=== PATIENT | female | born 1995 | race Caucasian/White ===

== ENCOUNTER 2017-08-21 16:53 | Emergency (ER) | payer MEDICAID ==
[2017-08-21 17:07] VITALS: BP 129/73
[2017-08-21] MEDS ORDERED: Ketorolac 60 MG/2 ML SDV IM ONE (17:36)
[2017-08-21] MEDS ORDERED: diphenhydrAMINE 25 MG Cap PO ONE (17:36)
[2017-08-21] MEDS ORDERED: Ondansetron 4 MG Tab.DIS PO ONE (17:36)
--- NOTE | 2017-08-21 17:39 | EDM.PDOC ---
ED HPI GENERAL MEDICAL PROBLEM - General Chief Complaint: Neurological Problem Stated Complaint: migraine Time Seen by Provider: 08/21/17 17:32 Source of Information: Reports: Patient, RN Notes Reviewed History Limitations: Reports: No Limitations - History of Present Illness INITIAL COMMENTS - FREE TEXT/NARRATIVE: 21-year-old female presents emergency department day complaint of headache she does have a known history of migraines she states this is typical for she does have photophobia and nausea as well this particular headache started at 3:00 this afternoon she has tried ibuprofen without much relief - Related Data Allergies Allergy/AdvReac Type Severity Reaction Status Date / Time Ct scan dye Allergy Hives Uncoded 06/12/16 16:06 Home Meds: Home Meds NK [No Known Home Meds] 06/12/16 [History] Past Medical History HEENT History: Reports: Allergic Rhinitis Respiratory History: Reports: PE Gastrointestinal History: Reports: GERD Musculoskeletal History: Reports: Arthritis, Fracture Other Musculoskeletal History: wrist FX. hips-arthritis Neurological History: Reports: Migraines Psychiatric History: Reports: Depression Endocrine/Metabolic History: Reports: Obesity/BMI 30+ Dermatologic History: Reports: Other (See Below) Other Dermatologic History: rash - Past Surgical History Head Surgeries/Procedures: Reports: None GI Surgical History: Reports: Hernia, Abdominal Social & Family History - Tobacco Use Smoking Status *Q: Current Every Day Smoker Years of Tobacco use: 4 Packs/Tins Daily: 1 - Recreational Drug Use Recreational Drug Use: No ED ROS GENERAL - Review of Systems Review Of Systems: See Below Constitutional: Reports: No Symptoms HEENT: Reports: Eye Pain Respiratory: Reports: No Symptoms Cardiovascular: Reports: No Symptoms GI/Abdominal: Reports: Nausea Neurological: Reports: Headache - Physical Exam Exam: See Below Exam Limited By: No Limitations General Appearance: Alert, WD/WN, No Apparent Distress Eye Exam: Bilateral Eye: Normal Fundi, Normal Inspection Respiratory/Chest: No Respiratory Distress Course - Vital Signs Last Recorded V/S: Last Vital Signs Temp 98.2 F 08/21/17 17:13 Pulse 87 08/21/17 17:13 Resp 18 08/21/17 17:13 BP 129/73 08/21/17 17:13 Pulse Ox 97 08/21/17 17:13 - Orders/Labs/Meds Meds: Medications Discontinued Medications Generic Name Dose Route Start Last Admin Trade Name Freq PRN Reason Stop Dose Admin Diphenhydramine HCl 25 mg 08/21/17 17:36 08/21/17 17:40 Benadryl PO 08/21/17 17:37 25 mg ONETIME ONE Administration Ketorolac Tromethamine 60 mg 08/21/17 17:36 08/21/17 17:42 Toradol IM 08/21/17 17:37 60 mg ONETIME ONE Administration Ondansetron HCl 4 mg 08/21/17 17:36 08/21/17 17:41 Zofran Odt PO 08/21/17 17:37 4 mg ONETIME ONE Administration Departure - Departure Time of Disposition: 17:58 Disposition: Home, Self-Care 01 Condition: Good Clinical Impression: Migraine Qualifiers: Migraine type: without aura Status migrainosus presence: without status migrainosus Intractability: not intractable Qualified Code(s): G43.009 - Migraine without aura, not intractable, without status migrainosus - Discharge Information Referrals: Ino Billings, BRIAN [Primary Care Provider] - Forms: ED Department Discharge Additional Instructions: Follow-up with primary care as needed, call return to the emergency department worsening of symptoms - Assessment/Plan Plan: Assessment Acuity = acute Site and laterality = migraine type headache Etiology = unclear etiology Manifestations = none Location of injury = Home Lab values = none Plan She had good relief combination Toradol, Benadryl and Zofran, she'll follow up with her primary care as needed Patient was in agreement with the plan all questions were answered, they were instructed to return to the emergency department or call for worsening symptoms. This note was dictated using [email or web address] voice recognition software please call with any questions.
== END 2017-08-21 18:06 | disposition home or self-care (01) ==
LOC: JP.ED 16:53
DX: G43.009 Migraine without aura, not intractable, without status migrainosus (principal); F17.210 Nicotine dependence, cigarettes, uncomplicated; E66.9 Obesity, unspecified
CPT/HCPCS: 96372; 99283; A9270; J1885

== ENCOUNTER 2019-09-09 20:42 | Emergency (ER) | payer MEDICAID ==
[2019-09-09 20:56] VITALS: BP 140/73; PULSE 92
--- NOTE | 2019-09-09 21:06 | EDM.PDOC ---
ED HPI GENERAL MEDICAL PROBLEM - General Chief Complaint: ADMINISTRATIVE TECH Problem Stated Complaint: WALK-IN MEDICAL Time Seen by Provider: 09/09/19 20:45 Source of Information: Reports: Patient History Limitations: Reports: No Limitations - History of Present Illness INITIAL COMMENTS - FREE TEXT/NARRATIVE: Eva is a 23 year old female, presents to the ED today with concerns of vaginal bleeding the last few days, sometimes going through a tampon an hour for up to 6 hours at a time. Patient c/o mild lightheadedness, passed some tissue which she brought in in a zip lock bag. Patient c/o mild pelvic cramping relieved with Ibuprofen. Patient had IUD placed in July. Patient denies any urinary symptoms/fever/chills. Onset: Gradual abd Pain Score (Numeric/FACES): 5 - Related Data Allergies Allergy/AdvReac Type Severity Reaction Status Date / Time Ct scan dye Allergy Hives Uncoded 09/09/19 21:06 Home Meds: Home Meds NK [No Known Home Meds] 06/12/16 [History] Past Medical History HEENT History: Reports: Allergic Rhinitis, Impaired Vision Respiratory History: Reports: PE Gastrointestinal History: Reports: GERD Musculoskeletal History: Reports: Arthritis, Fracture Other Musculoskeletal History: wrist FX. hips-arthritis Neurological History: Reports: Concussion, Migraines Psychiatric History: Reports: Anxiety, Depression, Panic Attack, PTSD Endocrine/Metabolic History: Reports: Obesity/BMI 30+ Dermatologic History: Reports: Other (See Below) Other Dermatologic History: rash - Past Surgical History Head Surgeries/Procedures: Reports: None GI Surgical History: Reports: Hernia, Abdominal Endocrine Surgical History: Reports: None Neurological Surgical History: Reports: None Musculoskeletal Surgical History: Reports: None Dermatological Surgical History: Reports: None Social & Family History - Caffeine Use Caffeine Use: Reports: Coffee, Energy Drinks, Soda, Tea ED ROS GENERAL - Review of Systems Review Of Systems: ROS reveals no pertinent complaints other than HPI. ED EXAM, GENERAL - Physical Exam Exam: See Below Exam Limited By: No Limitations General Appearance: Alert, WD/WN, No Apparent Distress Ears: Normal External Exam Head: Atraumatic Neck: Normal Inspection, Supple, Non-Tender Respiratory/Chest: No Respiratory Distress, Lungs Clear Cardiovascular: Regular Rate, Rhythm GI/Abdominal: Normal Bowel Sounds, Soft, Non-Tender (Female) Exam: Normal External Exam, Normal Speculum Exam, Vaginal Bleeding ( mild, small amount in vault, no CMT, no clots, no brisk bleeding, no other discharge appreciated, RN at bedside during exam) Back Exam: Normal Inspection Extremities: Normal Inspection, Normal Range of Motion Neurological: Alert, Oriented, CN II-XII Intact Psychiatric: Normal Affect, Normal Mood Skin Exam: Warm, Dry, Intact Lymphatic: No Adenopathy Course - Vital Signs Last Recorded V/S: Last Vital Signs Temp 36.5 C 09/09/19 21:07 Pulse 92 09/09/19 21:07 Resp 16 09/09/19 21:07 BP 140/73 09/09/19 21:07 Pulse Ox 96 09/09/19 21:07 Eva is a 23 year old female, presents to the ED today with concerns of vaginal bleeding. Please refer to HPI and focused exam. Patient has small amount of bleeding present on pelvic exam which was done with RN at bedside after obtaining patient verbal consent. Patient has no other abnormalities on exam. CBC obtained which returns with a very stable HGB of 14.8. Patient is hemodynamically stable here, afebrile. Urinalysis with 5-10 WBC's and small leukocyte esterase but no urinary symptoms, will await UC, Urine negative. Patient reassured and instructed to contact primary care clinic tomorrow to schedule follow up appt later this week. Reasons to return to the ED discussed, patient agreeable to plan of care and discharged in stable condition with her . - Orders/Labs/Meds Orders: Active Orders 24 hr Category Date Time Status CULTURE URINE [RM] Stat Lab 09/09/19 21:15 Labs: Laboratory Tests 09/09/19 09/09/19 09/09/19 Range/Units 20:46 20:59 21:12 WBC 8.6 (4.5-11.0) K/uL RBC 4.85 (3.30-5.50) M/uL Hgb 14.8 (12.0-15.0) g/dL Hct 45.0 (36.0-48.0) % MCV 93 (80-98) fL MCH 31 (27-31) pg MCHC 33 (32-36) % Plt Count 285 (150-400) K/uL Neut % (Auto) 70 H (36-66) % Lymph % (Auto) 23 L (24-44) % [place] % (Auto) 6 (2-6) % Eos % (Auto) 2 (2-4) % Baso % (Auto) 0 (0-1) % Sodium 140 (140-148) mmol/L Potassium 4.0 (3.6-5.2) mmol/L Chloride 102 (100-108) mmol/L Carbon Dioxide 28 (21-32) mmol/L Anion Gap 10.4 (5.0-14.0) mmol/L BUN 10 (7-18) mg/dL Creatinine 0.8 (0.6-1.0) mg/dL Est Cr Clr Drug Dosing 102.39 mL/min Estimated GFR (MDRD) > 60 (>60) Glucose 96 (74-106) mg/dL Calcium 9.3 (8.5-10.1) mg/dL Urine Color Yellow (YELLOW) Urine Appearance Slightly cloudy A (CLEAR) Urine pH 7.5 (5.0-8.0) Ur Specific [place] 1.025 (1.008-1.030) Urine Protein Negative (NEGATIVE) mg/dL Urine Glucose (UA) Negative (NEGATIVE) mg/dL Urine Ketones Negative (NEGATIVE) mg/dL Urine Occult Blood Moderate H (NEGATIVE) Urine Nitrite Negative (NEGATIVE) Urine Bilirubin Negative (NEGATIVE) Urine Urobilinogen 0.2 (0.2-1.0) EU/dL Ur Leukocyte Esterase Trace H (NEGATIVE) Urine RBC 5-10 H (0-5) Urine WBC 5-10 H (0-5) Ur Epithelial Cells Moderate Amorphous Sediment Not seen Urine Bacteria Few Urine Mucus Few Urine HCG, Qual 09/09/19 Range/Units 21:12 WBC (4.5-11.0) K/uL RBC (3.30-5.50) M/uL Hgb (12.0-15.0) g/dL Hct (36.0-48.0) % MCV (80-98) fL MCH (27-31) pg MCHC (32-36) % Plt Count (150-400) K/uL Neut % (Auto) (36-66) % Lymph % (Auto) (24-44) % [place] % (Auto) (2-6) % Eos % (Auto) (2-4) % Baso % (Auto) (0-1) % Sodium (140-148) mmol/L Potassium (3.6-5.2) mmol/L Chloride (100-108) mmol/L Carbon Dioxide (21-32) mmol/L Anion Gap (5.0-14.0) mmol/L BUN (7-18) mg/dL Creatinine (0.6-1.0) mg/dL Est Cr Clr Drug Dosing mL/min Estimated GFR (MDRD) (>60) Glucose (74-106) mg/dL Calcium (8.5-10.1) mg/dL Urine Color (YELLOW) Urine Appearance (CLEAR) Urine pH (5.0-8.0) Ur Specific [place] (1.008-1.030) Urine Protein (NEGATIVE) mg/dL Urine Glucose (UA) (NEGATIVE) mg/dL Urine Ketones (NEGATIVE) mg/dL Urine Occult Blood (NEGATIVE) Urine Nitrite (NEGATIVE) Urine Bilirubin (NEGATIVE) Urine Urobilinogen (0.2-1.0) EU/dL Ur Leukocyte Esterase (NEGATIVE) Urine RBC (0-5) Urine WBC (0-5) Ur Epithelial Cells Amorphous Sediment Urine Bacteria Urine Mucus Urine HCG, Qual Negative Departure - Departure Time of Disposition: 21:45 Disposition: Home, Self-Care 01 Condition: Good Clinical Impression: Vaginal bleeding - Discharge Information Instructions: Abnormal Uterine Bleeding, Vmlc-os-Ates Referrals: PCP,None [Primary Care Provider] - Forms: ED Department Discharge Additional Instructions: Eva, Your blood work is very reassuring. Your HGB is very stable. This type of bleeding can be very normal with recent IUD placement. Your pelvic exam is unremarkable. Please contact your primary care clinic tomorrow to schedule follow up appt by the end of this week. - My Orders Last 24 Hours: My Active Orders 09/09/19 21:15 CULTURE URINE [RM] Stat - Assessment/Plan Last 24 Hours: My Active Orders 09/09/19 21:15 CULTURE URINE [RM] Stat
== END 2019-09-09 21:43 | disposition home or self-care (01) ==
LOC: JP.ED 20:42
DX: N93.9 Abnormal uterine and vaginal bleeding, unspecified (principal); E66.9 Obesity, unspecified; Z91.041 Radiographic dye allergy status; Z68.41 Body mass index [BMI] 40.0-44.9, adult
CPT/HCPCS: 36415; 80048; 81001; 81025; 85025; 87086; 99284

== ENCOUNTER 2019-10-28 19:08 | Emergency (ER) | payer MEDICAID ==
[2019-10-28 19:37] VITALS: BP 126/95; PULSE 84
[2019-10-28] MEDS ORDERED: Lactated Ringers 1,000 ML IV ONE (19:47)
[2019-10-28] MEDS ORDERED: Ondansetron 4 MG/2 ML SDV IVPUSH ONE (19:47)
[2019-10-28] MEDS ORDERED: HYDROmorphone 0.5 MG/0.5 ML Syringe IVPUSH ONE (19:47)
--- NOTE | 2019-10-28 19:53 | EDM.PDOC ---
ED HPI GENERAL MEDICAL PROBLEM - General Chief Complaint: Gastrointestinal Problem Stated Complaint: MEDICAL Time Seen by Provider: 10/28/19 19:30 Source of Information: Reports: Patient History Limitations: Reports: No Limitations - History of Present Illness INITIAL COMMENTS - FREE TEXT/NARRATIVE: 23-year-old history morbid obesity presents to concerns of right upper quadrant pain. She reports the pain started insidiously this morning. It is primarily in the right upper quadrant. Is an ache. Is currently /10. No significant radiation. No fevers. She is unable to tolerate anything by mouth today. She initially had some dry heaves, mild emesis, as well as soft stools but these have resolved. She also endorses a headache. In childhood she had an umbilical hernia repair, otherwise no abdominal surgeries. Right Upper Abdomen Pain Score (Numeric/FACES): 7 - Related Data Allergies Allergy/AdvReac Type Severity Reaction Status Date / Time Ct scan dye Allergy Mild Hives Uncoded 10/28/19 19:30 Home Meds: Home Meds NK [No Known Home Meds] 06/12/16 [History] Past Medical History HEENT History: Reports: Allergic Rhinitis, Impaired Vision Respiratory History: Reports: PE Gastrointestinal History: Reports: GERD CLINICAL MEDICAL TRANSCRIPTIONIST History: Reports: Therapeutic Musculoskeletal History: Reports: Arthritis, Fracture Other Musculoskeletal History: wrist FX. hips-arthritis Neurological History: Reports: Concussion, Migraines Psychiatric History: Reports: Anxiety, Depression, Panic Attack, PTSD Endocrine/Metabolic History: Reports: Obesity/BMI 30+ Dermatologic History: Reports: Other (See Below) Other Dermatologic History: rash - Past Surgical History Head Surgeries/Procedures: Reports: None GI Surgical History: Reports: Hernia, Abdominal Female Surgical History: Reports: Other (See Below) Other Female Surgeries/Procedures: IUD placed Jul 24 2019 Endocrine Surgical History: Reports: None Neurological Surgical History: Reports: None Musculoskeletal Surgical History: Reports: None Dermatological Surgical History: Reports: None Social & Family History - Family History Family Medical History: Noncontributory - Tobacco Use Smoking Status *Q: Current Every Day Smoker Years of Tobacco use: 10 Packs/Tins Daily: 1 - Caffeine Use Caffeine Use: Reports: Energy Drinks, Soda, Tea Caffeine Use Comment: daily soda; weekly tea and energy drinks - Recreational Drug Use Recreational Drug Use: No ED ROS GENERAL - Review of Systems Review Of Systems: See Below Constitutional: Reports: No Symptoms HEENT: Reports: No Symptoms Respiratory: Reports: No Symptoms Cardiovascular: Reports: No Symptoms Endocrine: Reports: No Symptoms GI/Abdominal: Reports: Abdominal Pain, Diarrhea, Nausea : Reports: No Symptoms Musculoskeletal: Reports: No Symptoms Skin: Reports: No Symptoms Neurological: Reports: No Symptoms Psychiatric: Reports: No Symptoms Hematologic/Lymphatic: Reports: No Symptoms Immunologic: Reports: No Symptoms ED EXAM, GI/ABD - Physical Exam Exam: See Below Exam Limited By: No Limitations General Appearance: Alert, No Apparent Distress Ears: Normal External Exam Nose: Normal Inspection Throat/Mouth: Normal Inspection Head: Atraumatic, Normocephalic Neck: Normal Inspection Respiratory/Chest: Lungs Clear Cardiovascular: Regular Rate, Rhythm GI/Abdominal Exam: Soft, Tender (RUQ TTP, + [place]) Back Exam: Normal Inspection Extremities: Normal Inspection Neurological: Alert, Oriented Psychiatric: Normal Affect, Normal Mood Skin Exam: Warm, Dry Course - Vital Signs Last Recorded V/S: Last Vital Signs Temp 36.6 C 10/28/19 19:31 Pulse 84 10/28/19 19:31 Resp 14 10/28/19 19:31 BP 126/95 H 10/28/19 19:31 Pulse Ox 99 10/28/19 19:31 - Orders/Labs/Meds Labs: Laboratory Tests 10/28/19 10/28/19 10/28/19 Range/Units 20:06 20:06 20:20 WBC 6.5 (4.5-11.0) K/uL RBC 4.96 (3.30-5.50) M/uL Hgb 15.0 (12.0-15.0) g/dL Hct 45.8 (36.0-48.0) % MCV 92 (80-98) fL MCH 30 (27-31) pg MCHC 33 (32-36) % Plt Count 247 (150-400) K/uL Sodium 139 L (140-148) mmol/L Potassium 3.6 (3.6-5.2) mmol/L Chloride 102 (100-108) mmol/L Carbon Dioxide 27 (21-32) mmol/L Anion Gap 13.6 (5.0-14.0) mmol/L BUN 9 (7-18) mg/dL Creatinine 0.7 (0.6-1.0) mg/dL Est Cr Clr Drug Dosing 117.01 mL/min Estimated GFR (MDRD) > 60 (>60) Glucose 91 (74-106) mg/dL Calcium 9.1 (8.5-10.1) mg/dL Total Bilirubin 0.7 (0.2-1.0) mg/dL AST 49 H (15-37) U/L ALT 61 (12-78) U/L Alkaline Phosphatase 60 (46-116) U/L Total Protein 8.3 H (6.4-8.2) g/dL Albumin 4.2 (3.4-5.0) g/dL Globulin 4.1 H (2.3-3.5) g/dL Albumin/Globulin Ratio 1.0 L (1.2-2.2) Lipase 93 (73-393) U/L Urine Color Yellow (YELLOW) Urine Appearance Clear (CLEAR) Urine pH 6.0 (5.0-8.0) Ur Specific [place] 1.010 (1.008-1.030) Urine Protein Negative (NEGATIVE) mg/dL Urine Glucose (UA) Negative (NEGATIVE) mg/dL Urine Ketones Negative (NEGATIVE) mg/dL Urine Occult Blood Trace-intact H (NEGATIVE) Urine Nitrite Negative (NEGATIVE) Urine Bilirubin Negative (NEGATIVE) Urine Urobilinogen 0.2 (0.2-1.0) EU/dL Ur Leukocyte Esterase Negative (NEGATIVE) Urine RBC 0-5 (0-5) Urine WBC Not seen (0-5) Ur Epithelial Cells Rare Amorphous Sediment Not seen Urine Bacteria Few Urine Mucus Not seen Urine HCG, Qual 10/28/19 Range/Units 20:20 WBC (4.5-11.0) K/uL RBC (3.30-5.50) M/uL Hgb (12.0-15.0) g/dL Hct (36.0-48.0) % MCV (80-98) fL MCH (27-31) pg MCHC (32-36) % Plt Count (150-400) K/uL Sodium (140-148) mmol/L Potassium (3.6-5.2) mmol/L Chloride (100-108) mmol/L Carbon Dioxide (21-32) mmol/L Anion Gap (5.0-14.0) mmol/L BUN (7-18) mg/dL Creatinine (0.6-1.0) mg/dL Est Cr Clr Drug Dosing mL/min Estimated GFR (MDRD) (>60) Glucose (74-106) mg/dL Calcium (8.5-10.1) mg/dL Total Bilirubin (0.2-1.0) mg/dL AST (15-37) U/L ALT (12-78) U/L Alkaline Phosphatase (46-116) U/L Total Protein (6.4-8.2) g/dL Albumin (3.4-5.0) g/dL Globulin (2.3-3.5) g/dL Albumin/Globulin Ratio (1.2-2.2) Lipase (73-393) U/L Urine Color (YELLOW) Urine Appearance (CLEAR) Urine pH (5.0-8.0) Ur Specific [place] (1.008-1.030) Urine Protein (NEGATIVE) mg/dL Urine Glucose (UA) (NEGATIVE) mg/dL Urine Ketones (NEGATIVE) mg/dL Urine Occult Blood (NEGATIVE) Urine Nitrite (NEGATIVE) Urine Bilirubin (NEGATIVE) Urine Urobilinogen (0.2-1.0) EU/dL Ur Leukocyte Esterase (NEGATIVE) Urine RBC (0-5) Urine WBC (0-5) Ur Epithelial Cells Amorphous Sediment Urine Bacteria Urine Mucus Urine HCG, Qual Negative Meds: Medications Discontinued Medications Generic Name Dose Route Start Last Admin Trade Name Freq PRN Reason Stop Dose Admin Hydromorphone HCl 0.5 mg 10/28/19 19:47 10/28/19 20:10 Dilaudid IVPUSH 10/28/19 19:48 0.5 mg ONETIME ONE Administration Lactated Ringer's 1,000 mls @ 1,000 mls/hr 10/28/19 19:47 10/28/19 20:10 Ringers, Lactated IV 10/28/19 20:46 1,000 mls/hr BOLUS ONE Administration Ondansetron HCl 4 mg 10/28/19 19:47 10/28/19 20:07 Zofran IVPUSH 10/28/19 19:48 4 mg ONETIME ONE Administration - Re-Assessments/Exams Free Text/Narrative Re-Assessment/Exam: 23-year-old presents to concerns of right upper quadrant pain. On exam has normal vitals, relatively well-appearing, however is quite tender in the right upper quadrant with positive Brar sign. Most concerned for gallbladder pathology, we'll check abdominal labs, ultrasound , and urine. Providing IV pain control and antiemetics as well as IV fluid hydration. 10/28/19 19:52 Free Text/Narrative Re-Assessment/Exam: Labs, imaging unremarkable. No GB stones Patient now asymptomatic Does endorse mild R CVA tenderness. Had no hydro on US. Mild hematuria but currently with vaginal bleeding (ongoing for month,attributed to IUD). Suspicion for renal stone is low. Recommend to patient we defer CT imaging at this time and she is comfortable with this. She will return for recurrent/ worsening symptoms. Discharged 10/28/19 21:17 Departure - Departure Time of Disposition: 21:20 Disposition: Home, Self-Care 01 Clinical Impression: Abdominal pain Qualifiers: Abdominal location: right upper quadrant Qualified Code(s): R10.11 - Right upper quadrant pain - Discharge Information Referrals: PCP,None [Primary Care Provider] - Forms: ED Department Discharge Additional Instructions: We did not find a cause for your symptoms, but suspect they are due to viral illness. Please eat a bland diet and drink clear fluids. As discussed, return to the ER for worsening symptoms.
--- NOTE | 2019-10-28 21:03 | CRLUS ---
INDICATION: Right upper quadrant abdomen pain TECHNIQUE: Ultrasound abdomen limited. Sonographic images of the right upper quadrant were obtained using maier-scale and color Doppler images. COMPARISON: None FINDINGS: Liver: Diffusely echogenic parenchyma consistent with fatty infiltration. No masses. No intrahepatic biliary dilatation. Gallbladder: No stones or sludge. Normal wall thickness. No pericholecystic fluid. Common bile duct: 3 mm. Pancreas: Normal. Right kidney: Normal in size. Normal echotexture and cortex. No suspicious masses, stones, or hydronephrosis. Vasculature: Proximal abdominal aorta and IVC are normal. IMPRESSION: Unremarkable right upper quadrant ultrasound. No sign of gallbladder disease or other explanation for right upper quadrant pain. Dictated by Britton Bolaños MD @ Oct 28 2019 9:01PM Signed by Dr. Britton Bolaños @ Oct 28 2019 9:03PM
== END 2019-10-28 21:35 | disposition home or self-care (01) ==
LOC: JP.ED 19:08
DX: R10.11 Right upper quadrant pain (principal); E66.9 Obesity, unspecified; F17.210 Nicotine dependence, cigarettes, uncomplicated; Z91.041 Radiographic dye allergy status; Z68.41 Body mass index [BMI] 40.0-44.9, adult
CPT/HCPCS: 36415; 76705; 80053; 81001; 81025; 83690; 85027; 96361; 96374; 96375; 99284; J1170; J2405; J7120

== ENCOUNTER 2020-05-15 21:38 | Emergency (ER) | payer MEDICAID | END 2020-05-15 21:59 | disposition left against medical advice (07) | LOC: JP.ED 21:38 | DX: Z53.21 Procedure and treatment not carried out due to patient leaving prior to being seen by health care provider (principal) ==

== ENCOUNTER 2020-08-27 07:52 | Day surgery (SDC) | payer MEDICAID ==
[2020-08-27] MEDS ORDERED: Nozin Nasal Sanitizer NASBOTH ONE ×2 (08:30→13:30)
[2020-08-27] MEDS ORDERED: Glycopyrrolate 0.2 MG/ML 5 ML MDV ONE (08:46)
[2020-08-27] MEDS ORDERED: Propofol 200 MG/20 ML SDV ONE (08:46)
[2020-08-27] MEDS ORDERED: Neostigmine Methylsulfate 1 MG/ML 5 ML Syringe ONE (08:46)
[2020-08-27] MEDS ORDERED: Rocuronium 50 MG/5 ML Vial ONE (08:46)
[2020-08-27] MEDS ORDERED: fentaNYL 250 MCG/5 ML SDV ONE (08:46)
[2020-08-27] MEDS ORDERED: Dexamethasone 4 MG/ML SDV ONE (08:46)
[2020-08-27] MEDS ORDERED: Succinylcholine 200 MG/10 ML MDV ONE (08:46)
[2020-08-27] MEDS ORDERED: Ondansetron 4 MG/2 ML SDV ONE (08:46)
[2020-08-27] MEDS ORDERED: Lactated Ringers 1,000 ML IV SCH (09:15)
[2020-08-27] MEDS ORDERED: ceFAZolin 1 GM in Premix Bag 1 BAG IV ONE (10:00)
[2020-08-27] MEDS ORDERED: ceFAZolin 1 GM Vial IM ONE (10:00)
[2020-08-27] MEDS ORDERED: Bupivacaine 0.5% 30 ML SDV ONE (10:03)
[2020-08-27] MEDS ORDERED: Midazolam 1 MG/ML 2 ML SDV ONE (12:05)
[2020-08-27] MEDS ORDERED: Ketorolac 60 MG/2 ML SDV ONE (12:47)
[2020-08-27] MEDS ORDERED: fentaNYL 100 MCG/2 ML SDV ONE (12:57)
[2020-08-27] MEDS ORDERED: Acetaminophen/HYDROcodone 325-5 MG Tab PO ONE (13:31)
[2020-08-27 14:25] VITALS: BP 122/71; PULSE 66
--- NOTE | 2020-09-01 19:43 | OR ---
DATE OF PROCEDURE: 08/27/2020 SURGEON: Mati Henson MD PREOPERATIVE DIAGNOSIS: Chondromalacia of patella, right knee. POSTOPERATIVE DIAGNOSES: 1. Chondromalacia of patella, right knee. 2. Hypertrophic synovium with impingement. PROCEDURE: Arthroscopy, right knee, with chondroplasty of patella and limited synovectomy. ANESTHESIA: General. INDICATIONS: Eva is a 24-year-old female with a history of chronic anterior knee pain on the right knee. She has been through extensive physical therapy, attempted bracing and taping with no significant improvement. She has anterior pain with grinding and intermittent giving way. Examination and imaging are consistent with chondromalacia of the patellofemoral joint. She has failed conservative treatment. She now presents for arthroscopic evaluation and chondroplasty. Risks, benefits, potential complications of the procedure were discussed. DESCRIPTION OF PROCEDURE: After adequate anesthesia was obtained, the patient was placed supine with a tourniquet about the right upper thigh. Right leg was prepped and draped in a sterile fashion. Leg was exsanguinated and tourniquet inflated to 300 mmHg pressure. Standard inferior, medial, and lateral portals were established. The scope was introduced and patellofemoral joint was inspected. This revealed an area of grade 2 and early grade 3 changes just off the dome of the patella more medially. Further probing revealed a small bubble over the dome of the patella with significant softening of the articular cartilage throughout the dome without defect, grade I . Over the superior medial aspect of the patella, a veil of synovium was present which hung down into the patellofemoral joint and a ridge of hypertrophic synovium was present along the medial parapatellar region. A shaver was introduced and the synovium was debrided. Chondroplasty was then performed on the patella removing all loose articular fragments and bevelling the edges. This was done in the area of the grade 2 and 3 changes without removing any of the grade 1 softening as this would have resulted in removal of an extensive portion of the dome. Moving into the medial compartment, medial meniscus and articular cartilage were intact. ACL and PCL were intact. Lateral compartment showed intact articular cartilage and meniscus. Sweeping up into the lateral gutter, no loose bodies or other abnormalities were identified. The knee was taken through range of motion and the patella tracking was observed. Did not show excessive malalignment and no evidence of catching on any of the edges of the chondroplasty. The scope was withdrawn, knee was drained. Port sites were closed in a standard fashion, infiltrated with Marcaine, and a sterile dressing was applied. The patient tolerated the procedure very well. There were no complications, taken from the operating room in stable condition. Mati Henson MD /[id number] MTDD
== END 2020-08-27 14:29 | disposition home or self-care (01) ==
LOC: JP.SDS 07:52
PROVIDERS: ATTEND Specialist
DX: M22.41 Chondromalacia patellae, right knee (principal); M25.861 Other specified joint disorders, right knee; M67.261 Synovial hypertrophy, not elsewhere classified, right lower leg; G89.29 Other chronic pain; F17.200 Nicotine dependence, unspecified, uncomplicated; F41.9 Anxiety disorder, unspecified; E66.09 Other obesity due to excess calories; Z68.41 Body mass index [BMI] 40.0-44.9, adult
CPT/HCPCS: 29875; 36415; 80048; 81025; 85027; A9270; J0330; J0690; J1100; J1885; J2250; J2405; J2704; J3010; J3490; J7120; J2710

== ENCOUNTER 2022-05-07 06:11 | Emergency (ER) | payer MEDICAID ==
[2022-05-07 06:31] VITALS: BP 119/69; PULSE 72
== END 2022-05-07 07:00 | disposition home or self-care (01) ==
LOC: JP.ED 06:11
DX: U07.1 COVID-19 (principal); E66.9 Obesity, unspecified; Z68.38 Body mass index [BMI] 38.0-38.9, adult; Z88.8 Allergy status to other drugs, medicaments and biological substances
CPT/HCPCS: 99284; U0002

== ENCOUNTER 2022-05-12 09:21 | Emergency (ER) | payer MEDICAID ==
[2022-05-12 09:42] VITALS: BP 133/88; PULSE 98
[2022-05-12] MEDS ORDERED: Ketorolac 30 MG/ML SDV IM ONE (11:00)
[2022-05-12] MEDS ORDERED: LORazepam 0.5 MG Tab PO ONE (11:01)
[2022-05-12 11:08] LABS: ESTIMATED GFR 104 mL/min (>60)
== END 2022-05-12 13:20 | disposition home or self-care (01) ==
LOC: JP.ED 09:21
DX: R51.9 Headache, unspecified (principal); U09.9 Post COVID-19 condition, unspecified; E66.9 Obesity, unspecified; Z91.041 Radiographic dye allergy status; Z88.8 Allergy status to other drugs, medicaments and biological substances; Z68.37 Body mass index [BMI] 37.0-37.9, adult
CPT/HCPCS: 36415; 70450; 70450-26; 71046; 71046-26; 80053; 85025; 85379; 86140; 99282; 99284-25

== ENCOUNTER 2022-09-22 11:07 | Emergency (ER) | payer MEDICAID ==
[2022-09-22 11:20] VITALS: BP 114/67; PULSE 81
[2022-09-22] MEDS ORDERED: Ketorolac 30 MG/ML SDV IM ONE (11:31)
== END 2022-09-22 12:51 | disposition home or self-care (01) ==
LOC: JP.ED 11:07
DX: M79.651 Pain in right thigh (principal); M79.652 Pain in left thigh; F17.210 Nicotine dependence, cigarettes, uncomplicated; E66.9 Obesity, unspecified; Z68.37 Body mass index [BMI] 37.0-37.9, adult; Z91.041 Radiographic dye allergy status; Z88.8 Allergy status to other drugs, medicaments and biological substances; Z79.899 Other long term (current) drug therapy
CPT/HCPCS: 36415; 80048; 82550; 85025; 85651; 86140; 96372; 99283; J1885

== ENCOUNTER 2023-02-27 06:43 | Emergency (ER) | payer MEDICAID ==
[2023-02-27 07:10] VITALS: BP 114/72; PULSE 91
== END 2023-02-27 07:29 | disposition home or self-care (01) ==
LOC: JP.ED 06:43
DX: R11.2 Nausea with vomiting, unspecified (principal); J45.909 Unspecified asthma, uncomplicated; E66.9 Obesity, unspecified; Z68.39 Body mass index [BMI] 39.0-39.9, adult; Z91.041 Radiographic dye allergy status; Z91.013 Allergy to seafood; Z88.8 Allergy status to other drugs, medicaments and biological substances
CPT/HCPCS: 99283